=== PATIENT | male | born 1940 | race Caucasian/White ===

== ENCOUNTER → 2016-10-25 | Outpatient (CLI) | payer MEDICARE, OTHER ==
[~2016-10-25] MED LIST: AMLO10 PO; AMLO10TA2; BISO5TAB5 PO; CHRO200C PO; CLON0.1T; CLON0.1T PO; COQ-30CA2 PO; GABA300C5; GABA300C5 PO; HYDR-3583 PO; IRBE150T17; IRBE150T17 PO; LEVO.05 PO; MULTTAB22 PO; OMEGCAP4 PO; PIOG30TA4 PO; POTA10TA2; POTA10TA2 PO; PRAD150C; PRAD150C PO; REDCAP2 PO; VITA2000 PO; VITA250T3 PO
[2016-10-25 10:39] LABS: AUTOMATED NEUTROPHIL # 3.2 TH/MM3 (1.8-7.7); BASOPHIL % 0.8 % (0.0-2.0); EOSINOPHIL # 0.1 TH/MM3 (0-0.4); EOSINOPHIL % 1.6 % (0.0-4.0); HEMATOCRIT 42.8 % (39.0-51.0); HEMO FLAGS DIFF FINAL; LYMPH % 18.9 % (9.0-44.0); LYMPHOCYTE # 0.8 TH/MM3 (1.0-4.8); MEAN CELL VOLUME 90.5 FL (80.0-100.0); MEAN CORPUSCULAR HEMOGLOBIN 31.8 PG (27.0-34.0); MEAN CORPUSCULAR HGB CONC 35.1 % (32.0-36.0); MONO % 6.6 % (0.0-8.0); NEUT % 72.1 % (16.0-70.0); PLATELET COUNT 243 TH/MM3 (150-450); RED BLOOD COUNT 4.73 MIL/MM3 (4.50-5.90); RED CELL DISTRIBUTION WIDTH 14.2 % (11.6-17.2); WHITE BLOOD COUNT 4.4 TH/MM3 (4.0-11.0)
[2016-10-25 10:56] LABS: APTT (PATIENT) 51.2 SEC (24.3-30.1); INTERNATIONAL NORMALIZED RATIO 1.2 RATIO; PROTHROMBIN TIME - PATIENT 13.8 SEC (9.8-11.6)
[2016-10-25 10:57] LABS: BLOOD, URINE NEG (NEG); COMMENT (UR) CULT NOT INDICATED; CULTURE IF INDICATED CULT NOT INDICATED; GLUCOSE,URINE NEG (NEG); KETONE, URINE NEG (NEG); MUCUS URINE FEW /lpf (OCC); NITRITE,URINE NEG (NEG); URINE COLOR LIGHT-YELLOW (YELLW/STRAW)
[2016-10-25 11:19] LABS: ANION GAP 5 MEQ/L (5-15); AST (GOT) 23 U/L (15-37); BLOOD UREA NITROGEN 19 MG/DL (7-18); CHLORIDE 101 MEQ/L (98-107); GLOMERULAR FILTRATION RATE 76 ML/MIN (>89); SODIUM (NA) 140 MEQ/L (136-145)
[2016-10-25 11:20] LABS: GLUCOSE,FASTING 126 MG/DL (74-99)
[2016-10-25 11:26] LABS: ALKALINE PHOSPHATASE 55 U/L (45-117); ALT (GPT) 31 U/L (12-78); TOTAL BILIRUBIN ADULT 0.8 MG/DL (0.2-1.0)
--- NOTE | 2016-10-25 12:22 | RADRPT ---
EXAM DATE/TIME: 10/25/2016 11:04 [facility] COMPARISON: No previous studies available for comparison. INDICATIONS : Evaluate pneumonia, pneumothorax, or communicable disease. Pre op for neck surgery. MEDICAL HISTORY : None. SURGICAL HISTORY : None. ENCOUNTER: Initial ACUITY: 1 day PAIN SCORE: 0/10 LOCATION: Bilateral chest FINDINGS: The heart and mediastinal structures are normal. The pulmonary vascular pattern is also normal. The lungs are clear. Degenerative changes and scoliosis of the thoracolumbar spine are noted. CONCLUSION: 1. No acute cardiopulmonary disease. 2. Degenerative change sand scoliosis of the thoracolumbar spine. Tom Cline MD on October 25, 2016 at 12:04 Board Certified Radiologist. This report was verified electronically.
--- NOTE | 2016-10-25 22:52 | EKG ---
Date Performed: 10/25/2016 Time Performed: 09:21:31 PTAGE: 76 years EKG: ATRIAL FIBRILLATION WITH ABERRANT CONDUCTION OR VENTRICULAR PREMATURE COMPLEXES ABNORMAL QR S-T ANGLE ABNORMAL ECG NO PREVIOUS TRACING DOCTOR: Sanjay Guillermo Interpretating Date/Time 10/25/2016 22:52:00
== END ==
LOC: CPRE 08:52
PROVIDERS: ATTEND Neurological Surgery
DX: Z01.812 Encounter for preprocedural laboratory examination (principal); Z01.810 Encounter for preprocedural cardiovascular examination; Z01.811 Encounter for preprocedural respiratory examination; M50.00 Cervical disc disorder with myelopathy, unspecified cervical region; M48.06 Spinal stenosis, lumbar region; R94.31 Abnormal electrocardiogram [ECG] [EKG]; Z79.01 Long term (current) use of anticoagulants
CPT/HCPCS: 36415; 71020; 80053; 81001; 85025; 85610; 85730; 93005

== ENCOUNTER 2016-11-01 06:30 | Observation (INO) | payer MEDICARE, OTHER ==
[~2016-11-01] VITALS: Ht 172.7 cm; Wt 85.0 kg
[~2016-11-01 06:30] MED LIST changes: -AMLO10TA2; -CLON0.1T; -GABA300C5; -HYDR-3583 PO; -IRBE150T17; -POTA10TA2; -PRAD150C
[2016-11-01] MEDS ORDERED: METOPROLOL TARTRATE 25 MG TAB PO PRN (07:00)
[2016-11-01] MEDS ORDERED: SODIUM CHLOR 0.9% 1000 ML INJ 1,000 ML IV SCH (07:00)
[2016-11-01] MEDS ORDERED: SODIUM CHLORID 0.9% 500 ML IV PRN (07:00)
[2016-11-01] MEDS ORDERED: VANCOMYCIN 1000 MG/NS 250 ML IV SCH ×2 (07:00)
[2016-11-01] MEDS ORDERED: POVIDONE IODINE 5% (ANTISEPSIS KIT) 4 APPLICATIONS EACH NARE PRN (07:00)
[2016-11-01] MEDS ORDERED: THROMBIN (TOPICAL) 5,000 UNIT VIAL ONE (07:00)
[2016-11-01] MEDS ORDERED: MICROFIBRILLAR COLLAGEN HEMOSTAT 70 X 35 MM BANDAGE ONE (07:00)
[2016-11-01] MEDS ORDERED: CHLORHEXIDINE GLUCONATE 2 % 1 PACK (2 CLOTHS) TOPICAL PRN (07:00)
[2016-11-01] MEDS ORDERED: LACTATED RINGER'S 1000 ML IV PRN (07:00)
[2016-11-01] MEDS ORDERED: INSULIN HUMAN REGULAR 1,000 UNITS/10 ML VIAL SQ PRN (07:00)
[2016-11-01] MEDS ORDERED: GELFOAM SIZE 100 ONE (07:01)
[2016-11-01] MEDS ORDERED: ceFAZolin INJ 1,000 MG VIAL ONE ×2 (07:01→09:24)
[2016-11-01] MEDS ORDERED: GENTAMICIN SULFATE 80 MG/2 ML VIAL ONE (07:01)
[2016-11-01 07:13] VITALS: BP 161/102; PULSE 91; RESP 18; TEMP 97.7; O2SAT 98
[2016-11-01] MEDS ORDERED: FAMOTIDINE 20 MG/2 ML VIAL ONE (08:17)
[2016-11-01] MEDS ORDERED: ARTIFICIAL TEARS OPTH OINT 3.5 APPLIC/3.5 GM TUBO ONE (08:17)
[2016-11-01] MEDS ORDERED: MIDAZOLAM HCL 2 MG/2 ML VIAL ONE (08:17)
[2016-11-01] MEDS ORDERED: ACETAMINOPHEN 1000 MG/100 ML VIAL IV ONE (08:17)
[2016-11-01] MEDS ORDERED: fentaNYL CITRATE 250 MCG/5 ML AMP ONE (08:18)
[2016-11-01] MEDS ORDERED: ceFAZolin INJ 1,000 MG VIAL IV ONE (09:23)
[2016-11-01] MEDS ORDERED: MICROFIBRILLAR COLLAGEN HEMOSTAT 70 X 35 MM BANDAGE TOPICAL ONE (09:40)
[2016-11-01] MEDS ORDERED: GELFOAM SIZE 100 TOP ONE (09:40)
[2016-11-01] MEDS ORDERED: THROMBIN (TOPICAL) 5,000 UNIT VIAL TOP ONE (09:40)
[2016-11-01] MEDS ORDERED: GENTAMICIN SULFATE 80 MG/2 ML VIAL IRRIGATION ONE (09:40)
[2016-11-01] MEDS ORDERED: ACETAMINOPHEN/HYDROcodone 325 MG/10 MG TAB PO PRN ×2 (11:00)
[2016-11-01] MEDS ORDERED: SODIUM CHLORIDE 0.9% FLUSH 5 ML FLUSH IVF PRN (11:00)
[2016-11-01] MEDS ORDERED: ACETAMINOPHEN 325 MG TAB PO PRN (11:00)
[2016-11-01] MEDS ORDERED: MORPHINE SULFATE 4 MG/ML INJ IV PUSH PRN ×2 (11:00)
--- NOTE | 2016-11-01 11:03 | PD.OP ---
Operative Report Date of Surgery: Nov 01, 2016 Preoperative Diagnosis: Cervical spinal stenosis Postoperative Diagnosis: Cervical spinal stenosis Procedure: C4-5 anterior cervical discectomy, interbody arthodhesis using PEEK cage filled with autologous bone graft, Simplicity plate and screws Anesthesia: general Surgeon: Kody Melton [facility] Coordinator(s): Nadege Maria Operation and Findings: INDICATIONS FOR THE PROCEDURE The patient is a 76 year old male who presented a with cervical myelopathy. He was found to have severe stenosis at C4-5 with compression of the spinal cord. He failed nonoperative treatment. A surgical decompression and arthrodhesis were indicated. The [id number] details of the procedure, indications, alternatives, risks and potential complications were fully discussed with the patient. The patient fully understood. All The questions were answered. No guarantees were given. The patient voiced requesting the procedure and provided informed consents. The patient was offered the alternative of delaying the procedure and continuing with nonsurgical management. DETAILS OF THE SURGICAL PROCEDURE After the induction of general anesthesia, endotracheal intubation was performed. A Nagel catheter, bilateral ETTA hose, and sequential compression devices were placed and kept throughout the procedure. The patient was positioned supine on a Eddi table with the head over a gel doughnut. All pressure points were carefully padded with egg crate mattress. The eyes were tapped shut after ointment was applied by the anesthesiologist to prevent corneal abrasion. A Shira hugger was placed over the exposed lower body to maintain control of the core body temperature. The electrophysiological team placed the needles and electrodes in their proper location and baseline SSEP's and motor evoked potentials were registered. The anterior cervical region was prepped and draped in the usual sterile fashion. A localizing x-ray was performed with a C-arm. The surgical procedure was performed in several steps as follow: SURGICAL APPROACH A skin incision was made along the middle cervical crease with a #10 blade. The dissection was carried out through the platysma exposing the sternocleidomastoid muscle. The cervical spine was approached following the fascial layers of the neck just medial to the anterior border of the sternocleidomastoid and carotid sheath by a combination of sharp and dull dissection. The omohyoid muscle was identified and carefully dissected laterally and the deep cervical fascia was carefully opened. The longus colli muscles were retracted to each side of the midline. A marker was placed at the disc space C4-5 and a cross-table lateral x-ray performed with a C-arm. SURGICAL DECOMPRESSION In order to decompress the anterior surface of the spinal cord it was necessary to preform a microsurgical resection of the disk. At this point in the procedure the operating microscope was draped in the usual sterile fashion and brought to the field. The rest of the surgical procedure was performed using microdissection technique with the exception of the closure. Under the operative microscopic, an anterior osteophytic spur was carefully removed using the leksell, and a self-retaining retractor was placed underneath the longus colli muscle. The annulus at C4-5 was incised with a #15 blade and microdiscectomy was then carefully carried out using angled curets and pituitary forceps. The patient had a posterior osteophytic/disk complex which was producing mass affect on the anterior surface of the dural sac. This was carefully drilled with a TPS drill and resected with a think foot plate 2mm kerrison under high magnification. The posterior longitudinal ligament was then elevated with an angled curet and incised with a 15 bladed knife. A careful ressection of the posterior longitudinal ligament was carried out using a thin footplate 2 mm Kerrison. The decompression was then carried out laterally , and a bilateral foraminotomy was performed with a 2mm thin foot Kerrison. Then the vertebral bodies above and below the disk space were undercut using a 2 mm thin foot Kerrison. The epidural space was the systematically assessed with a nerve hook in search for disk fragments. An excellent decompression was achieved in both, the dural sac and bilateral exiting nerve roots. The incision was then irrigated with a large amount of antibiotic solution INTERBODY ARTHRODHESIS At this point of the procedure, the superior and inferior endplates were then evenly decorticated with a TPS drill. The use of a drill in combination with a curette allowed me to systematically remove the cartilaginous endplates, exposing healthy bone for the interbody arthrodesis. fourteen millimeters distraction pins were then placed at the vertebral bodies adjacent to the disk space, and gentle distraction was applied. The size of the interbody cage was then assessed using different size spacers, and a rasp was used to ensure no residual cartilage. A PEEK cage of the appropriate size was selected, and the interbody arthrodesis was then preformed by carefully impacting a PEEK cage filled with autologous bone graft to the disc space C4-5. An excellent position of the cage was achieved. This was was confirmed anatomically by feelling the space posterior to the implant and distance to the anterior surface of the dural sac. Radiological confirmation of the position was performed with a cross lateral xray performed with the C-arm. INTERNAL INSTRUMENTAL FIXATION Once that the interbody device was in an appropriate position, it was necessary to stabilize the spine with anterior instrumentation. Anterior instrumentation has demonstrated to increase the rate of fusion, accelerate the patient's recovery, and decrease the rate of failed interbody grafts. At this point of the procedure, the distance between the vertebral bodies was carefully measures, and a Simplicity plate was brought to the field and presented in front of the C4 and C5 vertebral bodies. Industrial X Ray Operator holes were then drilled using the TPS drill, and the plate was then secured to the spine using self-drilling, self-tapping screws. Initially, the inferior right screw was inserted, followed by placement of the contra lateral upper screw. The remaining screws were sequentially placed in a contra-lateral fashion. A proper purchase was achieved with all screws and the position of the cage, plate and screws, and alignment of the spine was assessed anatomically by direct visualization, and radiologically by performing a cross lateral xray of the cervical spine with the C-arm. CLOSURE The incision was irrigated with several liters of antibiotic solution. Hemostasis was achieved with a bipolar. The screws were locked to prevent backing out. A 7 mm Eddi-Nair drain was left in the prevertebral space and externalized through a separate stab incision. The incision was then closed in layers. 3-0 Vicryl with interrupted sutures was used to close the platysma and subcutaneous tissue. The skin was closed with 4-0 running subcuticular Vicryl and Dermabond was applied to the skin. The drain was secured with a 3-0 nylon. At the end of the procedure the sponge, needle and instrument counts were all correct. The estimated blood loss was less than 50 cc. No blood transfusion was given. No intraoperative complications occurred. The patient received prophylactic antibiotics. The patient was then extubated and transferred to the recovery room in stable condition. Kody Melton MD Nov 01, 2016 11:03
[2016-11-01] MEDS ORDERED: *morphine SULFATE 8 MG/ML PERIprocedure ONLY ONE ×2 (11:45→12:18)
[2016-11-01] MEDS: NS + KCL 20 MEQ INJ 1,000 ML IV SCH ×2 (11:52→21:26)
[2016-11-01] MEDS ORDERED: ONDANSETRON HCL 4 MG/2 ML VIAL IV PUSH ONE (12:00)
[2016-11-01] MEDS ORDERED: PHENYLEPH/NS 1000 MCG/10 ML SYR IV ONE (12:00)
[2016-11-01] MEDS ORDERED: ePHEDrine/NS 25 MG/5 ML SYR IV ONE (12:00)
[2016-11-01] MEDS ORDERED: PROPOFOL 200 MG/20 ML AMP IV ONE (12:00)
[2016-11-01] MEDS ORDERED: LACTATED RINGER'S 1000 ML INJ 1,000 ML IV ONE (12:00)
--- NOTE | 2016-11-01 12:07 | RADRPT ---
EXAM DATE/TIME: 11/01/2016 09:13 [facility] COMPARISON: No previous studies available for comparison. INDICATIONS : Post-op C4-C5 anterior cervical fusion. MEDICAL HISTORY : None. SURGICAL HISTORY : None. ENCOUNTER: Initial ACUITY: 1 day PAIN SCORE: Non-responsive. LOCATION: neck FINDINGS: Status post anterior cervical fusion at C4-5. There is good alignment of the cervical fusion. CONCLUSION: Good position and alignment status post cervical fusion at C4-5. Issac Che MD on November 01, 2016 at 12:04 Board Certified Radiologist. This report was verified electronically.
--- NOTE | 2016-11-01 12:11 | RADRPT ---
EXAM DATE/TIME: 11/01/2016 09:13 [facility] COMPARISON: No previous studies available for comparison. INDICATIONS : C4-C5 anterior cervical fusion. Level localization. MEDICAL HISTORY : None. SURGICAL HISTORY : None. ENCOUNTER: Initial ACUITY: 1 day PAIN SCORE: Non-responsive. LOCATION: neck FINDINGS: A localization device has been placed anteriorly at the level of C4-C5 CONCLUSION: Level localization C4-C5 Issac Che MD on November 01, 2016 at 12:08 Board Certified Radiologist. This report was verified electronically.
[2016-11-01] MEDS ORDERED: DO NOT ADM ANY ANTICOAGULANT DRUGS PRN (13:15)
[2016-11-01] MEDS: DEXAMETHASONE SOD PHOS 4 MG/ML VIAL IV PUSH SCH ×2 (15:00→22:48)
[2016-11-01 15:58] VITALS: O2SAT 98
[2016-11-01 16:00] VITALS: BP 158/92; PULSE 102; RESP 18; TEMP 97.3; O2SAT 92
[2016-11-01] MEDS: ceFAZolin 2 GM PREMIX 50 ML IV SCH (16:08)
[2016-11-01] MEDS ORDERED: HYDR-3583 PO (17:01)
[2016-11-01 18:12] VITALS: O2SAT 92
[2016-11-01 20:00] VITALS: BP 176/97; PULSE 113; RESP 20; TEMP 98.3; O2SAT 93
[2016-11-01] MEDS: SODIUM CHLORIDE 0.9% FLUSH 5 ML FLUSH IVF SCH (21:00)
[2016-11-01] MEDS: DOCUSATE SODIUM 100 MG CAP PO SCH (21:00)
[2016-11-01] MEDS: cloNIDine HCL 0.1 MG TAB PO SCH (21:14)
[2016-11-01] MEDS: GABAPENTIN 300 MG CAP PO SCH (21:14)
[2016-11-01] MEDS: BISOPROLOL FUMARATE 5 MG TAB PO SCH (21:15)
[2016-11-02] VITALS: BP 152/82; PULSE 102; RESP 18; TEMP 97; O2SAT 95
[2016-11-02] MEDS: ceFAZolin 2 GM PREMIX 50 ML IV SCH ×2 (01:53→09:08)
[2016-11-02] MEDS ORDERED: cloNIDine HCL 0.1 MG TAB PO PRN (04:30)
[2016-11-02 04:50] VITALS: BP 158/88; PULSE 94; RESP 18; TEMP 97.4; O2SAT 97
[2016-11-02] MEDS ORDERED: LEVOTHYROXINE SODIUM 50 MCG TAB PO SCH (06:00)
[2016-11-02] MEDS: NS + KCL 20 MEQ INJ 1,000 ML IV SCH (06:02)
[2016-11-02] MEDS: DEXAMETHASONE SOD PHOS 4 MG/ML VIAL IV PUSH SCH (06:02)
[2016-11-02 08:17] VITALS: BP 175/97; PULSE 89; RESP 20; TEMP 96.5; O2SAT 95
[2016-11-02] MEDS ORDERED: HYDROCHLOROTHIAZIDE 25 MG TAB PO SCH (09:00)
[2016-11-02] MEDS ORDERED: LOSARTAN 50 MG TAB PO SCH (09:00)
[2016-11-02] MEDS ORDERED: PANTOPRAZOLE SOD 40 MG DELAYED RELEASE TAB PO SCH (09:00)
[2016-11-02] MEDS: BISOPROLOL FUMARATE 5 MG TAB PO SCH (09:07)
[2016-11-02] MEDS: cloNIDine HCL 0.1 MG TAB PO SCH (09:07)
[2016-11-02] MEDS: GABAPENTIN 300 MG CAP PO SCH (09:07)
[2016-11-02] MEDS: SODIUM CHLORIDE 0.9% FLUSH 5 ML FLUSH IVF SCH (09:08)
[2016-11-02] MEDS: DOCUSATE SODIUM 100 MG CAP PO SCH (09:08)
--- NOTE | 2016-11-02 10:25 | HHI.DS ---
Discharge Summary Admission Date Nov 01, 2016 at 10:56 Discharge Date: Nov 02, 2016 Admitting Diagnosis s/p ACDF (1) Status post cervical arthrodesis ICD Code: Z98.1 Brief History Mr. Nguyễn is a 76 year old male who presented a with cervical myelopathy. He was found to have severe stenosis at C4-5 with compression of the spinal cord. He failed nonoperative treatment. A surgical decompression and arthrodesis were indicated. Imaging Last Impressions Cervical Spine X-Ray 11/01/16 0000 Signed Impressions: Service Date/Time: Tuesday, November 01, 2016 09:13 - CONCLUSION: Level localization C4-C5 Issac Che MD PE at Discharge Awake, alert, conversing well. Speech fluent. Wound clean with dressing on. Neck immobilized by [place] collar Motor: moves all four extremities Hospital Course Mr. Nguyễn underwent a C4-5 anterior cervical discectomy, interbody arthodhesis using PEEK cage filled with autologous bone graft, Simplicity plate and screws on Nov 01, 2016. His surgery went well without complications. He was discharged home in stable conditions. Wound care and activity restrictions were discussed. Pt Condition on Discharge: Stable Discharge Disposition: Discharge Home Discharge Instructions DIET: Follow Instructions for: Heart Healthy Diet ACTIVITIES You can perform: Weight Bearing As [place] ADDITIONAL Activity Instructio: Avoid strenuous activities, heavy lifting, bending, overhead, pushing, pulling or any other activities that may place stress on the spine. Wear cervical collar at all times, may remove when eating. AVoid falls. New Medications: Hydrocodone-Acetaminophen (Hydrocodone-Acetaminophen) 10-325 mg Tab 1 TAB PO Q8HR PRN PAIN SCALE 1 TO 10 #90 Ref 0 TAB Hydrocodone-Acetaminophen (Hydrocodone-Acetaminophen) 10-325 mg Tab 1 TAB PO Q8HR PRN PAIN SCALE 1 TO 10 #62 TAB Continued Medications: Amlodipine (Norvasc) 10 Mg Tab 10 MG PO DAILY Blood Pressure Management #30 Ref 0 TAB Ascorbic Acid (Vitamin C) 250 Mg Tab 2 MG PO Nutritional Supplement Ref 0 TAB Bisoprolol (Bisoprolol) 5 Mg Tab 5 MG PO DAILY Blood Pressure Management #30 Ref 0 TAB Cholecalciferol (Vitamin D3) 2,000 Unit Cap 2000 UNITS PO DAILY Nutritional Supplement #1 Ref 0 BOTTLE Chromium Picolinate (Chromium Picolinate) 200 Mcg Cap 2 TAB PO DAILY Nutritional Supplement Clonidine (Clonidine) 0.1 Mg Tab 0.1 MG PO BID Blood Pressure Management #60 Ref 0 TAB Coenzyme Q10 (Ubidecarenone) (Coq-10) 30 Mg Cap 1 CAP PO DAILY Cholesterol Management Dabigatran (Pradaxa) 150 Mg Cap 150 MG PO BID Blood Clot Prevention #60 Ref 0 CAP Gabapentin (Gabapentin) 300 Mg Cap 2 TAB PO DAILYAC #60 Ref 0 CAP Gabapentin (Gabapentin) 300 Mg Cap 300 MG PO HS #30 Ref 0 CAP Irbesartan-Hydrochlorothiazide (Irbesartan-Hydrochlorothiazide) 150-12.5 Mg Tab 1 TAB PO DAILY Blood Pressure Management #30 Ref 0 TAB Levothyroxine (Synthroid) 50 Mcg Tab 50 MCG PO DAILY Thyroid #30 Ref 0 TAB Multiple Vitamins W/ Minerals (Multi For Him) 1 Tab Tab 1 TAB PO DAILY Nutritional Supplement Clinton-3 Fatty Acids (Clinton III Epa+Dha 1000 mg) 1 Cap Cap 1200 MG PO DAILY Bladder Spasm Pioglitazone (Pioglitazone) 30 Mg Tab 30 MG PO DAILY Blood Sugar Management #30 Ref 0 TAB Potassium Chloride ER (Potassium Chloride ER) 10 Meq Tab 10 MEQ PO BID Electrolyte Replacement #60 Ref 0 TAB Red Yeast Rice Extract (Red Yeast Rice) 600 Mg Cap 1 CAP PO DAILY Cholesterol Management Maryana Mckee Nov 02, 2016 10:25
--- NOTE | 2016-11-02 10:25 | HHI.DCPOC ---
Discharge Care Plan Diagnosis: (1) Status post cervical arthrodesis Goals to Promote Your Health * To prevent worsening of your condition and complications * To maintain your health at the optimal level Directions to Meet Your Goals Take your medications as prescribed Follow your dietary instruction Follow activity as directed Keep your appointments as scheduled Take your immunizations and boosters as scheduled If your symptoms worsen call your PCP, if no PCP go to Urgent Care Center or Emergency Room Smoking is Dangerous to Your Health. Avoid second hand smoke Call the 24-hour hour crisis hotline for domestic abuse at Maryana Mckee Nov 02, 2016 10:25
[2016-11-02] MEDS ORDERED: HYDR-3583 PO (10:34)
[2016-11-02 11:12] VITALS: O2SAT 99
[2016-11-02 12:13] VITALS: BP 172/74; PULSE 88; RESP 20; TEMP 97.1; O2SAT 98
== END 2016-11-02 12:35 | disposition home or self-care (01) ==
LOC: HSDC 06:30 → HSDI 10:56 → HCIN 11:11 → HSDI 11:23 → N05A 13:59
PROVIDERS: ADMIT Neurological Surgery; ATTEND Neurological Surgery
PROC: 0RG10A0 Fusion of Cervical Vertebral Joint with Interbody Fusion Device, Anterior Approach, Anterior Column, Open Approach (ICD-10-PCS; 2016-11-01)
PROC: 0RT30ZZ Resection of Cervical Vertebral Disc, Open Approach (ICD-10-PCS; principal; 2016-11-01 08:29)
DX: M48.02 Spinal stenosis, cervical region (principal)
CPT/HCPCS: 00670; 22856; 72020; 76000; 82948; 94150; 97162; C1713; G0378; G8987; G8988; J0131; J0690; J1100; J1580; J2250; J2270; J2370; J2405; J3010; J3370; J3480; J7050; J7120; L0150; L0172